=== PATIENT | male | born 1985 | race Caucasian/White ===

== ENCOUNTER 2019-05-14 17:19 | Observation (INO) | payer BC ==
--- NOTE | 2019-05-14 17:34 | ED ---
Abdominal Pain/Male - HPI Summary HPI Summary: This pt is a 34 y/o male presenting to [facility] c/o severe right lower abd pain. Pt reports he began to have abd pain last night described as a "gas pain" but states it was mild. Throughout the day today his pain became stronger and more localized to his right lower abdomen. In the last 2 hours since about 1530 pt states his pain has radiated down to his right testicle. Pt notes associated nausea and lightheadedness feeling like passing out secondary to pain. He denies fever. Pt has not had this pain in the past. 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 Denies dysuria. No PMHx. No PSHx. - History of Current Complaint Chief Complaint: EDAbdPain Stated Complaint: ABD/GROIN PAIN PER PT Time Seen by Provider: 05/14/19 17:25 Hx Obtained From: Patient Onset/Duration: Lasting Days - 1, Still Present Timing: Lasting Days - 1 Severity Currently: Severe Pain Intensity: 8 Pain Scale Used: 0-10 Numeric Location: Discrete At: RLQ Radiates: Yes Radiates to: Other - righ testicle Character: Sharp, Other: - aching Aggravating Factor(s): Nothing Alleviating Factor(s): Nothing Associated Signs And Symptoms: Positive: Nausea, Other - POSITIVE: lightheadedness. Negative: Fever - Allergies/Home Medications Allergies/Adverse Reactions: Allergies Allergy/AdvReac Type Severity Reaction Status Date / Time No Known Allergies Allergy Verified 07/31/18 02:41 PMH/Surg Hx/FS Hx/Imm Hx Endocrine/Hematology History: Denies: Hx Diabetes Cardiovascular History: Denies: Hx Hypertension Neurological History: Denies: Other Neuro Impairments/Disorders - Surgical History Surgical History: None Infectious Disease History: No Infectious Disease History: Denies: Traveled Outside the [place] in Last 30 Days - Family History Known Family History: Negative: Blood Disorder Family History: Mother and brother with appendicitis. - Social History Alcohol Use: Occasionally Hx Substance Use: No Substance Use Type: Reports: None Smoking Status (MU): Never Smoked Tobacco Review of Systems Negative: Fever Positive: Abdominal Pain, Nausea Positive: pain - right testicle Neurological: Other - POSITIVE: lightheadedness All Other Systems Reviewed And Are Negative: Yes Physical Exam - Summary Physical Exam Summary: Constitutional: Well-developed, Well-nourished, Alert. Uncomfortable. Skin: Warm, Dry HENT: Normocephalic; Atraumatic Eyes: Conjunctiva normal Neck: Musculoskeletal ROM normal neck. (-) JVD, (-) Stridor Cardio: Rhythm regular, rate normal, Heart sounds normal; Intact distal pulses; Radial pulses are 2+ and symmetric. (-) Murmur Pulmonary/Chest wall: Effort normal. (-) Respiratory distress, (-) Wheezes, (-) Rales Abd: Soft, right lower quadrant and right inguinal canal tenderness, +rebound, + voluntary guarding (-) Distension : Capri Baum RN, and Michael Reyes RN, both present in room as chaperones. Patient has right testicle with tenderness. No lesions, no L testicular tenderness. Musculoskeletal: (-) Edema Lymph: (-) Cervical adenopathy Neuro: Alert, Oriented x3 Psych: Mood and affect Normal Triage Information Reviewed: Yes Vital Signs On Initial Exam: Initial Vitals Temp Pulse Resp BP Pulse Ox 97.8 F 63 16 117/65 97 05/14/19 17:19 05/14/19 17:19 05/14/19 17:19 05/14/19 17:19 05/14/19 17:19 Vital Signs Reviewed: Yes Procedures - Sedation Patient Received Moderate/Deep Sedation with Procedure: No Diagnostics - Vital Signs Vital Signs Temp Pulse Resp BP Pulse Ox 05/14/19 17:19 97.8 F 63 16 117/65 97 - Laboratory Result Diagrams: 05/14/19 17:57 05/14/19 17:57 Lab Statement: Any lab studies that have been ordered have been reviewed, and results considered in the medical decision making process. - Ultrasound No standard instances Ultrasound Interpretation Completed By: Radiologist Summary of Ultrasound Findings: Testicular US IMPRESSION: 1. There are bilateral scrotal varicoceles. 2. No testicular torsion, orchitis, or epididymitis. 3. There is a blind-ending tubular structure in the right lower quadrant measuring 11.5 mm diameter with a thickened wall measuring up to 3 mm with no peristalsis. This is the area of most pain but the technologist did not indicate whether this structure was compressible or whether there was rebound tenderness which are specific indicators acute appendicitis, however acute appendicitis is suspected given the abnormal dilation and thickened gomes. Dr. Chester has reviewed this report. Re-Evaluation - Re-Evaluation First Eval Re-Evaluation Time: 18:25 Comment: feed research technician reports US is consistent with appendicitis. Abdominal Pain Male Course/Dx - Course Course Of Treatment: 34 y/o male p/w RLQ/R testicular pain. - PE w RLQ tenderness, +rebound, mild tenderness R scrotum. - ddx includes pathology ( torsion vs epididymitis), abdominal pathology such as appendicitis, or kidney stone. - Labs notable for leukocytosis to 14, ultrasound of the appendix and scrotum shows appendicitis. Patient given Zosyn and fluids. To be admitted by surgery - Diagnoses Provider Diagnoses: Appendicitis - Provider Notifications Discussed Care Of Patient With: Anant Stephens Time Discussed With Above Provider: 18:38 Instructed by Provider To: Other - Discussed with Dr. Stephens, surgeon, who recommends Zosyn and will come see the pt. [18:41] Dr. Zuniga, radiologist, confirms US shows appendicitis. [18:43] Dr. Stephens accepts pt to the OR. Discharge ED - Sign-Out/Discharge Documenting (check all that apply): Patient Departure - Admit to OR - Discharge Plan Condition: Stable Disposition: ADMITTED TO [facility] Referrals: No Primary Care Phys,NOPCP [Medical Doctor] - - Billing Disposition and Condition Condition: STABLE Disposition: Admitted to [facility] - Attestation Statements Document Initiated by Usman: Yes Documenting Scribe: Carolynn Pavon Provider For Whom Scribe is Documenting (Include Credential): Jovita Chester MD Scribe Attestation: I, Carolynn Pavon, scribed for Jovita Chester MD on 05/14/19 at 1846. Scribe Documentation Reviewed: Yes Provider Attestation: The documentation as recorded by the Carolynn west accurately reflects the service I personally performed and the decisions made by me, Jovita Chester MD Status of Scribe Document: Viewed
[2019-05-14 18:06] LABS: ABS Eosinophils 0.2 10^3/ul (0-0.6); ABS Lymphocytes 1.5 10^3/ul (1.0-4.8); ABS Monocytes 0.9 10^3/ul (0-0.8); ABS Neutrophils 12.8 10^3/ul (1.5-7.7); Eosinophil % 1.1 %; Hematocrit 41 % (42-52); Hemoglobin 14.2 g/dL (14.0-18.0); Lymphocyte % 9.8 %; Mean Corpuscular HGB Conc 35 g/dL (31-36); Mean Corpuscular Hemoglobin 31 pg (27-31); Mean Corpuscular Volume 90 fL (80-94); Mean Platelet Volume 8.4 fL (7.4-10.4); Platelet Count 189 10^3/uL (150-450); Red Blood Count 4.53 10^6 /uL (4.18-5.48); Red Cell Distribution Width 13 % (10-15); White Blood Count 15.4 10^3/uL (3.5-10.8)
[2019-05-14] MEDS ORDERED: NS 0.9% 1000 ML** 1,000 ML IV ONE (18:27)
[2019-05-14 18:29] LABS: Albumin 4.3 g/dL (3.2-5.2); Albumin/Globulin Ratio 1.9 (1-3); BUN/Creatinine Ratio 20.8 (8-20); Globulin 2.3 g/dL (2-4); Potassium 3.8 mmol/L (3.5-5.0); Total Bilirubin 0.6 mg/dL (0.2-1.0); Total Protein 6.6 g/dL (6.4-8.9)
[2019-05-14] MEDS ORDERED: Piperacillin/Tazobac ADVAN(*) 3.375 GM in NS 0.9% 100 ML* 100 ML IVPB ONE ×2 (18:39→19:21)
[2019-05-14] MEDS ORDERED: Morphine INJ* 2 MG/ML 1 ML SYRINGE (TWO MG - NEW SYRINGE VERSION) IV PRN (19:24)
[2019-05-14] MEDS ORDERED: Ondansetron INJ* 2 MG/ML VIAL IV PRN (19:26)
[2019-05-14] MEDS ORDERED: Ketorolac INJ* 30 MG/ML 1 ML VIAL IV PUSH PRN (19:26)
[2019-05-14 19:59] LABS: Urine Appearance Clear; Urine Bilirubin Negative (Negative); Urine Blood Negative (Negative); Urine Color Yellow; Urine Glucose Negative (Negative); Urine Ketones Negative (Negative); Urine Nitrite Negative (Negative); Urine Protein Negative (Negative); Urine Specific Gravity 1.016 (1.010-1.030); Urine Urobilinogen Negative (Negative)
[2019-05-14] MEDS ORDERED: Zosyn per Pharmacy* NOTE FOLLOW UP SCH (20:00)
[2019-05-14] MEDS ORDERED: Lactated Ringers 1000 ML Bag* 1,000 ML IV SCH (20:00)
--- NOTE | 2019-05-14 20:36 | HP ---
HISTORY AND PHYSICAL: DATE OF ADMISSION: 05/14/19 CHIEF COMPLAINT: Abdominal pain. HISTORY OF PRESENT ILLNESS: This is a pleasant 34-year-old gentleman who presented to the emergency room with right lower quadrant pain. The pain started generally in the lower abdomen late last night and the pain localized towards the right lower quadrant during the day today. His appetite has been poor. No nausea, vomiting, fevers, or chills. No diarrhea, no blood per rectum. He has never had pain like this before. Workup in the emergency room included laboratory studies, which showed an elevated white blood cell count and ultrasound, which showed what appeared to be a thickened appendix consistent with appendicitis. PAST MEDICAL HISTORY: Denies history of cardiac, liver, kidney, or lung disease. PAST SURGICAL HISTORY: None. MEDICATIONS: None. ALLERGIES: None. FAMILY HISTORY: Denies history of colorectal or breast cancer. SOCIAL HISTORY: He is here with significant other. Denies tobacco use. Drinks occasional alcohol. REVIEW OF SYSTEMS: General: Denies weight loss or change of appetite. HEENT: No changes of vision, hearing, or swallowing. No sore throat. Cardiac: No chest pain. Pulmonary: No cough. GI: No blood per rectum. : No hematuria. Skin: Denies rash. Neuro: No headache or dizziness. Musculoskeletal: No extremity weakness. Psych: No anxiety or depression. PHYSICAL EXAMINATION GENERAL: A pleasant gentleman complaining of abdominal pain. HEENT: The sclerae are anicteric. Oral mucosa is pink and moist. NECK: Supple. No JVD. LUNGS: Clear. HEART: Regular. ABDOMEN: Soft, nondistended, tender in the right lower quadrant. EXTREMITIES: No clubbing, cyanosis, or edema. NEURO: Grossly intact. No focal motor or sensory deficits. BACK: No vertebral or CVA tenderness. SKIN: No rash, petechiae, or jaundice. IMPRESSION: Appendicitis. PLAN: Plan will be for observation, IV hydration, broad spectrum antibiotics and laparoscopic appendectomy. We discussed surgery and the likelihood that he will have surgery with the on-call physician in the morning, Dr. Dunn. We discussed surgery, laparoscopic events, risks included but not limited to bleeding infection, injury to intraabdominal contents including the bowel among others were explained to the patient. He seemed to understand and agreed to the procedure and all questions were answered. [id number]/[facility] #: [id number] [facility]
[2019-05-14] MEDS ORDERED: Iohexol 300* (CONTRAST) 10 ML SDV IV ONE (23:50)
[2019-05-14] MEDS: ZOSYN 3.375 GM Q6H - Intermittant 30 min Infusion IVPB SCH ×2 (23:58)
[2019-05-14] MEDS: NS 0.9% 1000 ML** 1,000 ML IV SCH (23:58)
[2019-05-15] MEDS: ZOSYN 3.375 GM Q6H - Intermittant 30 min Infusion IVPB SCH ×2 (05:29)
[2019-05-15] MEDS: NS 0.9% 1000 ML** 1,000 ML IV SCH (07:45)
[2019-05-15 08:21] LABS: ABS Eosinophils 0.1 10^3/ul (0-0.6); ABS Lymphocytes 1.6 10^3/ul (1.0-4.8); ABS Monocytes 0.9 10^3/ul (0-0.8); ABS Neutrophils 5.7 10^3/ul (1.5-7.7); Eosinophil % 1.8 %; Hematocrit 39 % (42-52); Hemoglobin 13.7 g/dL (14.0-18.0); Lymphocyte % 19.1 %; Mean Corpuscular HGB Conc 35 g/dL (31-36); Mean Corpuscular Hemoglobin 32 pg (27-31); Mean Corpuscular Volume 90 fL (80-94); Mean Platelet Volume 8.3 fL (7.4-10.4); Platelet Count 167 10^3/uL (150-450); Red Blood Count 4.36 10^6 /uL (4.18-5.48); Red Cell Distribution Width 12 % (10-15); White Blood Count 8.3 10^3/uL (3.5-10.8)
--- NOTE | 2019-05-15 08:40 | PN ---
Progress Note - Progress Note Date of Service: 05/15/19 SOAP: Subjective: Still with RLQ abdominal pain, worse with movement Has appetite Objective: Temp Pulse Resp BP Pulse Ox 98.0 F 67 16 111/57 98 05/15/19 07:24 05/15/19 07:24 05/15/19 07:24 05/15/19 07:24 05/15/19 07:24 Intake & Output 05/13/19 05/14/19 05/15/19 05/16/19 06:59 06:59 06:59 06:59 Intake Total 1671 1091 Output Total 750 300 Balance 921 791 Weight 210 lb Intake: IV Fluids 1451 991 LR 351 991 IVPB 220 100 Zoysn 220 100 Oral 0 Output: Urine 750 300 Other: Estimated Void Medium # Voids 1 PEX: Comfortable Lungs are clear Abd is soft and non-distended. Tenderness with guarding in the right lower quadrant-some rigidity. No peritoneal irritation. Bowel sounds present throughout. No generalized pain. No hernias or prior incisions. Ext without edema Laboratory Results - last 24 hr 05/14/19 05/14/19 05/14/19 17:57 17:57 19:45 WBC 15.4 H RBC 4.53 Hgb 14.2 Hct 41 L MCV 90 MCH 31 MCHC 35 RDW 13 Plt Count 189 MPV 8.4 Neut % (Auto) 83.2 Lymph % (Auto) 9.8 [place] % (Auto) 5.7 Eos % (Auto) 1.1 Baso % (Auto) 0.2 Absolute Neuts (auto) 12.8 H Absolute Lymphs (auto) 1.5 Absolute Monos (auto) 0.9 H Absolute Eos (auto) 0.2 Absolute Basos (auto) 0.0 Absolute Nucleated RBC 0.0 Nucleated RBC % 0.0 Sodium 138 Potassium 3.8 Chloride 106 Carbon Dioxide 28 Anion Gap 4 BUN 22 Creatinine 1.06 Est GFR ( Amer) 98.0 Est GFR (Non-Af Amer) 81.0 BUN/Creatinine Ratio 20.8 H Glucose 121 H Calcium 9.0 Total Bilirubin 0.60 AST 16 ALT 20 Alkaline Phosphatase 60 Total Protein 6.6 Albumin 4.3 Globulin 2.3 Albumin/Globulin Ratio 1.9 Urine Color Yellow Urine Appearance Clear Urine pH 5.0 Ur Specific [place] 1.016 Urine Protein Negative Urine Ketones Negative Urine Blood Negative Urine Nitrate Negative Urine Bilirubin Negative Urine Urobilinogen Negative Ur Leukocyte Esterase Negative Urine Glucose Negative 05/15/19 08:16 WBC 8.3 RBC 4.36 Hgb 13.7 L Hct 39 L MCV 90 MCH 32 H MCHC 35 RDW 12 Plt Count 167 MPV 8.3 Neut % (Auto) 68.2 Lymph % (Auto) 19.1 [place] % (Auto) 10.6 Eos % (Auto) 1.8 Baso % (Auto) 0.3 Absolute Neuts (auto) 5.7 Absolute Lymphs (auto) 1.6 Absolute Monos (auto) 0.9 H Absolute Eos (auto) 0.1 Absolute Basos (auto) 0.0 Absolute Nucleated RBC 0.0 Nucleated RBC % 0.0 Sodium Potassium Chloride Carbon Dioxide Anion Gap BUN Creatinine Est GFR ( Amer) Est GFR (Non-Af Amer) BUN/Creatinine Ratio Glucose Calcium Total Bilirubin AST ALT Alkaline Phosphatase Total Protein Albumin Globulin Albumin/Globulin Ratio Urine Color Urine Appearance Urine pH Ur Specific [place] Urine Protein Urine Ketones Urine Blood Urine Nitrate Urine Bilirubin Urine Urobilinogen Ur Leukocyte Esterase Urine Glucose Assessment: RLQ abdominal pain-history and clinical findings are consistent with acute appendicitis (initial symptoms of generalized abdominal pain, becoming localized in RLQ, anorexia, no diarrhea and leukocytosis in a male). Reviewed both CT and US-- CT read as normal appendix, US shows thick walled tubular structure in RLQ that is non-compressible. Despite normal read on CT with clinical history and physical exam I believe he has acute appendicitis and I recommend laparoscopic appendectomy today. I discussed all of this with the patient and his this morning at the bedside. Plan: Laparoscopic appendectomy today. The procedure including the risks of, but not limited to, of bleeding, infection, abscess, open procedure, injury to peritoneal and retroperitoneal structures, blood clots, anesthesia were all explained. I answered their questions to the best of my ability. Will plan for OR today.
[2019-05-15] MEDS ORDERED: Buffered Lidocaine 1% SYRIN* 1 ML/SYRINGE INTRADERM ONE (09:15)
[2019-05-15] MEDS ORDERED: Acetaminophen TAB* 325 MG PO ONE (09:15)
[2019-05-15] MEDS ORDERED: fentaNYL* 50 MCG/ML 5 ML VIAL (250 MCG VIAL) ONE (09:17)
[2019-05-15] MEDS ORDERED: Midazolam* 1 MG/ML 2 ML VIAL (2 MG) ONE (09:17)
[2019-05-15] MEDS ORDERED: Succinylcholine* 20 MG/ML 10 ML VIAL ONE (09:17)
[2019-05-15] MEDS ORDERED: Rocuronium* 10 MG/ML VIAL ONE (09:18)
[2019-05-15] MEDS ORDERED: Lactated Ringers 1000 ML Bag* 1,000 ML IV SCH (10:00)
--- NOTE | 2019-05-15 10:44 | OP ---
Operative Report - Blank - Operative Report Date of Operation: 05/15/19 Note: Operative Note Preoperative Dx: Acute Appendicitis Postoperative Dx: Acute Appendicitis Procedure: Laparoscopic Appendectomy Anesthesia: GET Surgeon: Mona BENSON Assist: Olga BENSON EBL: Minimal Specimen: Appendix Fluids: 600cc LR Drain: None Findings: As Above
[2019-05-15] MEDS ORDERED: Acetaminophen TAB* 325 MG ONE (10:46)
[2019-05-15] MEDS ORDERED: Bupivacaine 0.25% EPI 200,000* 30 ML SDV ONE (10:57)
[2019-05-15] MEDS ORDERED: Lidocaine 2% PF * 5 ML VIAL ONE (11:08)
[2019-05-15] MEDS ORDERED: Propofol* 10 MG/ML 20 ML BTL ONE ×2 (11:08→11:09)
[2019-05-15] MEDS ORDERED: Dexamethasone IV* 4 MG/ML 1 ML (4 MG) ONE (11:18)
[2019-05-15] MEDS ORDERED: HYDROmorphone INJ1* 1 MG/ML SYRINGE ONE (11:27)
[2019-05-15] MEDS ORDERED: Ondansetron INJ* 2 MG/ML VIAL ONE (11:55)
[2019-05-15] MEDS ORDERED: Glycopyrrolate IV* 0.2 MG/ML 1 ML VIAL ONE (11:55)
[2019-05-15] MEDS ORDERED: Ketorolac INJ* 30 MG/ML 1 ML VIAL ONE (11:55)
[2019-05-15] MEDS ORDERED: Neostigmine Methylsulfate* 3 MG/3 ML SYRINGE ONE (11:56)
[2019-05-15] MEDS ORDERED: Ondansetron INJ* 2 MG/ML VIAL IV PRN (12:01)
[2019-05-15] MEDS ORDERED: HYDROmorphone INJ1* 1 MG/ML SYRINGE IV PRN (12:01)
[2019-05-15] MEDS ORDERED: PROCHLORPERAZINE INJ 5 MG/ML 2 ML VIAL IV PRN (12:01)
[2019-05-15] MEDS ORDERED: Naloxone* 0.4 MG/ML 1 ML VIAL IV PRN (12:01)
[2019-05-15] MEDS ORDERED: diPHENhydraMINE IV* 50 MG/ML 1 ml VIAL (BENADRYL) IV PRN (12:01)
[2019-05-15 13:16] VITALS: BP 124/79
--- NOTE | 2019-05-16 02:23 | OP ---
CC: [facility] OPERATIVE REPORT: DATE OF OPERATION: 05/15/19 DATE OF : 89 SURGEON: Mil Dunn MD PAINTER MAINTENANCE: Eula Espinoza MD ANESTHESIOLOGIST: Dr. Tobar. ANESTHESIA: General with local. PRE-OP DIAGNOSIS: Acute appendicitis. POST-OP DIAGNOSIS: Acute suppurative appendicitis. OPERATIVE PROCEDURE: Laparoscopic appendectomy. ESTIMATED BLOOD LOSS: Minimal. IV FLUIDS: 1 L of crystalloid. SPECIMEN: Appendix. WOUND CLASSIFICATION: III. COMPLICATIONS: None. DRAINS: None. BRIEF HISTORY: Mr. Sam Martin is a healthy 34-year-old gentleman, who presented to the [facility] room last evening with almost 24 hours of abdominal discomfort that became localized in the righ t lower quadrant. He was noted to have leukocytosis of 15,000. A CT scan of his abdomen and pelvis showed a normal appendix; however, an ultrasound was performed due to his persistent discomfort, whic h showed findings consistent with acute appendicitis. He was admitted to the surgical services with plans for appendectomy today. The procedure was discussed with the patient and his , the risks of, but not limited to bleeding, infection, intraabdominal abscess formation, injury to peritoneal and retroperitoneal structures, po ssibility of an open procedure, possibility of blood clots and the risks of general anesthesia were a ll explained. FINDINGS: Acute suppurative appendicitis without evidence of gangrene, perforation, or abscess. DESCRIPTION OF PROCEDURE: Written informed consent was obtained, the abdomen was marked with indelib le ink, and the patient was taken to the operating room, placed in the supine position where sequenti al compression devices were placed in the lower extremities. General anesthesia was administered. T he abdomen was prepped and draped in the usual sterile fashion. Time-out verification was completed. Initially, a small transverse incision was made just above the umbilicus and the peritoneal cavity wa s entered under direct vision. A 12-mm blunt port was inserted and the abdomen was insufflated to 15 mmHg. The patient was placed in a slight Trendelenburg position and a 5 mm port was placed in the left lowe r abdominal wall and a second 5 mm port was placed in the suprapubic position. Evaluation of the pelvis revealed no fluid or peritonitis. The terminal ileum and cecum were unremar kable. The appendix was identified. It was completely intraperitoneal. Its distal half was inflamed, edema tous with some fibrinous exudate consistent with acute suppurative appendicitis. There was no eviden ce of gangrene, perforation or abscess. The mesoappendix was then divided sequentially from the tip of the appendix down to the base using th e LigaSure device. The base of the cecum and appendix were normal and a victor load of an EndoGIA 45 mm stapler was used to divide and amputate the appendix at its base. It was placed in an EndoCatch bag and brought out thr ough the umbilical incision. Staple line was intact. Hemostasis was assured and the right lower quadrant was irrigated with salin e. All ports were removed under direct vision of the camera. The umbilical fascia was closed with interrupted 0 Vicryl suture. The skin of all 3 incisions was ap proximated with subcuticular 4-0 Vicryl suture. Steri-Strips were applied. The patient tolerated th e procedure well and was taken to the recovery room in stable condition. [id number]/[facility] #: [id number]
== END 2019-05-15 13:15 | disposition home or self-care (01) ==
LOC: ED 17:19 → SSU 19:22
PROVIDERS: ADMIT Surgery; ATTEND Surgery
DX: K35.80 Unspecified acute appendicitis (principal); R11.0 Nausea; R10.31 Right lower quadrant pain; R42 Dizziness and giddiness
CPT/HCPCS: 36415; 74177; 76870; 80053; 81003; 85025; 86140; 88304; 96361; 96365; 96366; 96375; 99284; A9270-GY; C1776; G0378; J0330; J1100; J1170; J1885; J2250; J2405; J2543; J2704; J2710; J3010; Q9967